=== PATIENT | male | born 1995 | race Caucasian/White ===

== ENCOUNTER 2022-01-03 12:57 | Outpatient (REF) | payer OTHER, SELFPAY ==
--- NOTE | ~2022-01-03 | XR_ITS ---
EXAMINATION: XR SHOULDER, LEFT CLINICAL INFORMATION: Pain COMPARISON: None TECHNIQUE: AP external rotation, Grashey, scapular Y, and axillary views of the left shoulder. FINDINGS: The bones and soft tissues are normal. No fracture. Glenohumeral and acromioclavicular alignment is anatomic with normal joint space. No abnormal soft tissue calcifications. XR/XR shoulder LT min 2V IMPRESSION: Normal left shoulder.
[2022-01-03 13:41] LABS: MANUAL DIFF FLAG NO
[2022-01-03 13:49] LABS: Basophils Absolute Auto 0.1 X10*3/uL (0.0-0.2); Eosinophils Absolute Auto 0.1 X10*3/uL (0.0-0.4); Eosinophils Percent Auto 1.1 % (0-4); Hematocrit 45.5 % (42.0-52.0); Hemoglobin 15.4 g/dl (14.0-18.0); Imm Gran Abs Auto 0.02 X10*3/uL (0.00-0.03); Imm Gran Pct Auto 0.3 % (0.0-0.4); Lymphocytes Absolute Auto 1.6 X10*3/uL (1.2-4.9); Lymphocytes Percent Auto 25.8 % (20-40); Mean Corpuscular HGB Conc 33.8 g/dl (31.0-36.0); Mean Corpuscular Hemoglobin 29.6 pg (27.0-33.0); Mean Corpuscular Volume 87.5 fL (80.0-98.0); Mean Platelet Volume 10.5 fL (9.4-12.4); Monocytes Absolute Auto 0.5 X10*3/uL (0.1-1.2); Monocytes Percent Auto 7.1 % (2-11); Neutrophils Absolute Auto 4.1 x10*3/uL (2.0-8.3); Neutrophils Percent Auto 64.7 % (45-73); Platelet Count 238 X10*3/uL (160-400); Red Cell Distribution Width 12.9 % (11.0-16.0); White Blood Count 6.3 X10*3/uL (4.8-10.8)
[2022-01-03 14:07] LABS: Alanine Aminotransferase 44 U/L (0-40); Alkaline Phosphatase 97 U/L (39-117); Anion Gap 13 (12-20); Aspartate Amino Transferase 31 U/L (5-37); Bilirubin Total 0.8 mg/dL (0.0-1.0); Blood Urea Nitrogen 12 mg/dL (9-16); Calcium 10.1 mg/dL (8.4-10.2); Carbon Dioxide 29 mmol/L (22-29); Chloride 102 mmol/L (96-108); Cholesterol 213 mg/dL; Estimated Glomerular Filt Rate > 60; Glucose Fasting 91 mg/dL (60-99); HDL Cholesterol 56 mg/dL; LDL Cholesterol Calculated 136 mg/dl; Potassium 4.3 mmol/L (3.3-5.1); Sodium 140 mmol/L (135-145); Total Protein 8.3 g/dL (6.5-8.0); Triglycerides 105 mg/dL
[2022-01-03 14:29] LABS: TSH reflex Free T4 1.81 uIU/mL (0.32-4.0)
[2022-01-03 14:38] LABS: Syphilis Screen Nonreactive (Nonreactive)
[2022-01-03 14:44] LABS: Erythrocyte Sedimentation Rate 3 MM/HR (0-15)
[2022-01-04 08:27] LABS: HBS Num1 264.08 mIU/mL (0-7.99); HBc Num1 0.09 S/CO (0.00-0.79); HBsAGNum1 0.27 S/CO (0.00-0.99); HIV AB/AG Nonreactive (Nonreactive); Hepatitis B Core Antibody Nonreactive (Nonreactive); Hepatitis B Surface Antigen Negative (Negative); ~HepC Num1 0.11 S/CO (0.00-0.79); ~Hepatitis B Surface Antibody REACTIVE (Nonreactive); ~Hepatitis C Antibody Nonreactive (Nonreactive)
[2022-01-04 14:42] LABS: CRP High Sensitivity 0.6 mg/L
== END 2022-01-03 12:58 | disposition home or self-care (01) ==
LOC: HO.HMGCX 12:57
PROVIDERS: Visit Provider Family Medicine
DX: Z00.00 Encounter for general adult medical examination without abnormal findings (principal); Z11.3 Encounter for screening for infections with a predominantly sexual mode of transmission; Z11.59 Encounter for screening for other viral diseases; Z13.220 Encounter for screening for lipoid disorders; Z13.29 Encounter for screening for other suspected endocrine disorder; M25.512 Pain in left shoulder
CPT/HCPCS: 36415; 73030; 80053; 80061; 84443; 85025; 85652; 86141; 86704; 86706; 86780; 86803; 87340; 87389

== ENCOUNTER 2022-03-29 07:00 | Outpatient (RCR) | payer OTHER, SELFPAY ==
--- NOTE | 2022-03-15 08:22 | MHC.PT.OD ---
[facility] [place] [facility] [place] [facility] [place] [facility] [address] Josy Vann [address] [phone] F: [phone] F: [phone] F: [phone] F: [phone] Physical Therapy Daily Note Diagnosis: Pain in left shoulder- date of referral 02/16/[address] Cabrera Dove Date of Surgery: Date of Evaluation: 02/24/22 Date of Treatment: 03/15/22 Treatments to Date: 6 Cancellations to Date: No Shows to Date: Authorized Visits: Insurance End Date: Precautions/ Contraindications: Subjective: The pain seems to be higher in my neck and shoulder than before but the numbness is constant. 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 Pain Score and Location: 2 L SHOULDER Objective Flowsheet: Tests & Measures further screening for thoracic outlet next visit Exercises Started on seated [place] as a trial for attempted warm-up (increased sx so this was D/C after approx 4 minutes ) Trialed adding lumbar support roll. pec minor stretch over foam roller x 5 minutes, encouragement for daily stretching this way, review of corner stretch, Review of sub-max isometrics with encouragement to completed at home several times weekly with review of technique, flex/ext/ir/er/abd encouragement for SUBMAX painfree hold 3-5 seconds working up to 3 sets of 10 as able (currently expressing able to complete approx 2 sets 10R before fatigues), standing wall push ups with a plus x 6 reps then expressed irritation so stopped (trial of quadriped irritated sx in neck so position was D/C), rows/ext to neutral with RTB x 2 sets 10R, reviewed previously issued scalene, levator and upper trap stretches x 20 sec hold x 4R to target L side. Encouraged to visit stretching for R side of neck as well. Negative vertebral artery testing Trial of gentle manual C-tx level C6/C7 in effort to alleviate pain in neck and lateral shoulder. Pain in neck start of treatment 2/10 VAS score Pt received this treatment for 10 minutes, relief in pain reported however numbness persisted following completion. Held taping due to history of skin becoming itchy after last session HEP reviewed extensively with patient, importance of stretching daily, avoidance of tasks which increase radiating pain Modalities see above Assessment: Pt has attended 6 sessions of PT to date with start of care 02/24/22, demonstrating slow improvement in pain reduction of the left arm. He expresses ongoing difficulty with sleep, constant numbness along L UE, no specific dermatome, states its my whole arm. Pt has been initiated in a scapular and cervical stabilization program, cervical and pec stretches, expressing what he describes as 15% improvement. Pt is due to deploy in April and expresses concern for ongoing sx. He has been encouraged to stretch daily. Today we revisited trial of manual traction with some positive reduction in neck pain sx. Earlier in start of care trial of manual/mechanical traction irritated his sx. He has been advised to assess response, if positive we will continue with traction. Pt exhibits improving awareness of posture since start of care. Therapist is recommending a follow up with PCP due to persistent ongoing sx, question of benefit in trialing steroid taper to ease radiating sx. It is difficult to discern if he is experiencing centralization of sx as he reports significant variability in his sx. Pt L shoulder is hypermobile and will benefit from ongoing stabilization. Pt to continue to be seen at a frequency of 2x/week until further notice. Thank you for your referral. PT Plan: 2x/week x 4-6 weeks, manual>mechanical C-tx, postural/scapular strengthening> HEP. Progress to [facility] as able UE Lower trap, middle trap scap strength Short Term Goals: 1. AAROM L shoulder abduction to 140 with no sx radiating down L shoulder. (IR: sx 85 degrees worsening radiation with elevation). 2. Centralize L periscap sx to height of neck. (IR: sx radiating medial border>inferior border scap constant in nature). 3. Shift sx in L UE from constant numbness to intermittent. (IR: constant sx in L UE). 4. Resume weight-bearing of the L UE for ADLS/IADLS without flare of sx. (IR: avoiding R SL due to disturbance L UE). 5. Resume sleeping on the R UE MOD I with sx< 2/10. (IR: avoiding due to sleep disturbance). Intermediate Goals: 1. Functional AROM of the L UE. 2. Strength L ER 5/5. 3. Strength L abd 5.5. 4. Resume push-up from floor MOD I sx <2/10 L shoulder. 5. Centralize L periscap and L UE sx to absent 6. I HEP. Electronically signed by: Gaby Dos Santos, PT, DPT
== END 2022-04-26 09:26 | disposition home or self-care (01) ==
LOC: HO.PTWFD 07:00
PROVIDERS: PCP Family Medicine; Visit Provider Family Medicine
DX: M25.512 Pain in left shoulder (principal)
CPT/HCPCS: 97012; 97110; 97140; 97161; 97535

== ENCOUNTER 2023-06-08 15:42 | Outpatient (AMB) | payer OTHER, SELFPAY ==
[2023-06-08 15:44] VITALS: BP 116/70; PULSE 66; O2SAT 99; BMI 27.2
--- NOTE | 2023-06-08 15:44 | MHC.PC.OV ---
Vital Signs 06/08/23 15:44 Height 5 ft 9 in Weight 184 lb 8 oz BMI 27.2 BP 116/70 Blood Pressure Location Rt brachial Position Sitting Pulse 66 Pulse Source Pulse Oximeter Pulse Oximetry (%) 99 Oxygen Delivery Method Room Air Intake Visit Reasons: Ongoing Right Shoulder Pain Intake Note: Patient is here with left shoulder pain. Allergies No Known Allergies Allergy (Verified 06/08/23 15:47) Tobacco use date assessed: 06/08/23 Dental Screening Dental Screen Date: 06/08/23 Did you have a dental visit in the last 12 months?: No Did you have a dental problem in the last 6 months where you did not have access to dental care?: No Was dental information given to patient?: Patient has dentist HPI Ongoing Right Shoulder Pain HPI Details 28 y/o male presents today with complaints of ongoing L shoulder pain. Pt reports L shoulder pain moves up to his neck with popping/cracking sounds. He has trialed physical therapy before. PFSH Family History Maternal Grandmother Breast cancer Father Joint pain Social History Housing: House Patient Tobacco Use Status: Never used Tobacco e-Cigarette/Vaping Use: Never Used Second Hand Smoke Exposure: No service: Yes Current occupational status: employed Current occupational exposures/hazards: No Cognitive needs: No Hearing needs: No Vision needs: No Questionnaire AR-7 AMB Questionnaire AR-7 Date AR - 7 assessed: 02/15/22 Source: Developed by Drs. Torrey Lopez, Ankita Corona, Ronny Goldman and colleagues, with an educational neetu from [employer]. Review of Systems Const Denies chills, Denies fatigue, Denies fever(s), Denies headache(s) and Denies weakness ENT Denies dizziness and Denies headache(s) Card Denies dyspnea Resp Denies cough, Denies dyspnea, Denies wheezing and Denies other (shortness of breath) Musc Details: Shoulder pain Denies numbness and Denies tingling Neuro Denies dizziness, Denies headache(s), Denies numbness, Denies tingling and Denies weakness Psych Denies anxiety and Denies depression Endo Denies fatigue Aller/Immun Denies wheezing Physical exam (Primary Care) Vital Signs: Last Vital Signs Pulse 66 06/08/23 15:44 BP 116/70 06/08/23 15:44 Pulse Ox 99 06/08/23 15:44 Oxygen Delivery Method Room Air 06/08/23 15:44 BMI result Body Mass Index 27.2 Tobacco/Smoking Status: Tobacco use Status Tobacco use date assessed 06/08/23 06/08/23 15:52 Patient Tobacco Use Status Never used Tobacco 06/08/23 15:52 e-Cigarette/Vaping Use Never Used 06/08/23 15:46 Const General: well developed; No acute distress Nutritional Appearance: well nourished Orientation/consciousness: patient oriented x3 HENMT Head: Yes normocephalic and Yes atraumatic Eyes General: appearance normal, both eyes and all related structures Pupils: Equal, round and reactive pupils present EOM: EOMs intact bilaterally Resp Effort & Inspection: normal respiratory effort Neuro General: patient oriented x3 and gait normal Cranial nerves: Yes Equal, round and reactive pupils present Psych Affect: normal affect Assessment and Plan Assessment & Plan (1) Left shoulder pain: Code(s): M25.512 - Pain in left shoulder Plan: Return?of?left?shoulder?pain?with?popping?and?cracking?sounds. Pain?at?top?of?left?shoulder?with?abduction?to?90?degrees?and?also?with?internal?rotation Offered?physical?therapy?but?patient?says?he?is?exercising?already?and?declines?this Will?check?x-ray?and?refer?him?to?Ortho?as?per?his?request Orders: Orders XR shoulder LT min 2V Today M25.512 - Pain in left shoulder Comprehensive [place]. Panel Fast Today M25.512 - Pain in left shoulder, Z00.00 - Encounter for general adult medical examination without abnormal findings Lipid Panel Today M25.512 - Pain in left shoulder, Z00.00 - Encounter for general adult medical examination without abnormal findings Microalbumin, Random (w Creat) Today I10 - Essential (primary) hypertension, M25.512 - Pain in left shoulder TSH reflex Free T4 Today M25.512 - Pain in left shoulder, Z00.00 - Encounter for general adult medical examination without abnormal findings UA and rflx microscopic Today M25.512 - Pain in left shoulder, Z00.00 - Encounter for general adult medical examination without abnormal findings Referrals Orthopedics Referral M25.512 - Pain in left shoulder Coding Level of Care Code Est Pt Level 3 (31335) Diagnoses Left shoulder pain M25.512
== END 2023-06-08 16:05 | disposition home or self-care (01) ==
PROVIDERS: PCP Family Medicine; Visit Provider Family Medicine
DX: M25.512 Pain in left shoulder (principal)
CPT/HCPCS: 99213

== ENCOUNTER 2023-07-07 11:01 | Outpatient (AMB) | payer OTHER, SELFPAY ==
--- NOTE | 2023-07-07 11:07 | A.OFFVIS_ITS ---
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 Patient reports that he has had ongoing pain for years now, pain radiates to the neck. Cannot recall any injury. Hx of physical therapy which did help mildly. He also did 6 months of lifting/home exercise program. His symptoms are described as numbness and aching. 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 He has tried PT and it has not helped. He denies injury. He describes pain with activity. He does not have night pain and the pain is not sub deltoid. His pain is less definable and does not localize to any one spot. He describes deep pain that is intermittent. There are times when is is able to work out but inevitably he will do something that causes pain and he has to stop. Nothing helps except inactivity. PFSH Family History Maternal Grandmother Breast cancer Father Joint pain Social History (Reviewed 06/08/23 @ 15:49 by Erin Cooper [facility]) Housing: House Patient Tobacco Use Status: Never used Tobacco e-Cigarette/Vaping Use: Never Used Second Hand Smoke Exposure: No service: Yes Current occupational status: employed Current occupational exposures/hazards: No Cognitive needs: No Hearing needs: No Vision needs: No Physical Exam Vital Signs: BMI result Body Mass Index 27.2 Extrem Other: Full ROM neg lift off neg EC neg H/N + Castrejon's no acj TTP Results Reviewed Results Reviewed: I personally reviewed relevant radiographs. nl shoulder radiographs Assessment & Plan Assessment & Plan (1) Internal derangement of left shoulder: Code(s): M24.812 - Other specific joint derangements of left shoulder, not elsewhere classified Plan: THis is a 28 yo M with signs and symptoms of a SLAP tear. He has not improved iwth PT and I recommend an MRI of the left shoulder with intra-articular contrast and ABER sequence. Orders: Orders FL arthrogram shoulder LT Today M24.812 - Other specific joint derangements of left shoulder, not elsewhere classified MR shoulder LT wo/w con Today M24.812 - Other specific joint derangements of left shoulder, not elsewhere classified Coding Level of Care Code New Pt Level 4 (77922) Diagnoses Internal derangement of left shoulder M24.812
[2023-07-07 11:08] VITALS: BMI 27.2
== END 2023-07-07 12:23 | disposition home or self-care (01) ==
LOC: HO.HOS 11:01
PROVIDERS: PCP Family Medicine; Visit Provider Orthopaedic Surgery
DX: M24.812 Other specific joint derangements of left shoulder, not elsewhere classified (principal)
CPT/HCPCS: 99204

== ENCOUNTER → 2023-07-07 11:01 | Outpatient (BNVA) | payer OTHER, SELFPAY | PROVIDERS: PCP Family Medicine; Visit Provider Orthopaedic Surgery | DX: M24.812 Other specific joint derangements of left shoulder, not elsewhere classified (principal) | CPT/HCPCS: 99202 ==

== ENCOUNTER 2023-08-22 13:03 | Outpatient (REF) | payer OTHER, SELFPAY ==
--- NOTE | ~2023-08-22 | FL_ITS ---
Left shoulder arthrogram Indications: Left shoulder pain. Intra-articular gadolinium injection is needed prior to MRI. Procedure: Risks and benefits and possible complications were discussed with the patient and the consent form was signed. The patient was placed supine on the fluoroscopy table. The left shoulder was prepped and draped in normal sterile fashion. 1% buffered lidocaine was used for anesthesia. A 22-gauge spinal needle was used to access the shoulder joint. Intra-articular position of the needle within the shoulder joint was verified using 3 cc of Omnipaque 300. A total of 10 mL of gadolinium/saline (1:200) contrast mixture was then injected into the shoulder joint. The needle was then removed and a Band-Aid was applied to the injection site. The patient tolerated the procedure well and was sent for to MRI. There were no immediate complications. FL/FL arthrogram shoulder LT Impression: Fluoroscopic left shoulder arthrogram The procedure was performed by jada Moran PA-C, and directly supervised by Dr. Hernandez
--- NOTE | ~2023-08-22 | MR_ITS ---
EXAMINATION: MR SHOULDER WITH CONTRAST, LEFT CLINICAL INFORMATION: Left shoulder pain. COMPARISON: Pre-MRI arthrogram of the left shoulder. X-ray left shoulder December 2021 TECHNIQUE: MRI of the shoulder was performed following the intra-articular administration of a dilute gadolinium-containing solution (arthrogram) on a high-field scanner. Aber view also obtained. FINDINGS: ROTATOR CUFF: Intact. No muscle atrophy or fatty infiltration. BICEPS: Normal. CORACOACROMIAL ARCH: The undersurface of the acromion is curved with no subacromial spur. The acromioclavicular joint is normal. LABRUM/CAPSULE: Normal. GLENOHUMERAL JOINT/MARROW: Normal. MR/MR shoulder LT w con IMPRESSION: Normal MRI of the left shoulder with intra-articular contrast
[2023-08-22] MEDS: gadobutroL 2 ML VIAL IVPUSH (15:15)
== END 2023-08-22 13:04 | disposition home or self-care (01) ==
LOC: HO.XRAY 13:03
PROVIDERS: PCP Family Medicine; Visit Provider Orthopaedic Surgery
DX: M24.812 Other specific joint derangements of left shoulder, not elsewhere classified (principal)
CPT/HCPCS: 23350; 73040; 73222; A9585

== ENCOUNTER → 2023-08-22 13:06 | Outpatient (BNV) | payer OTHER, SELFPAY | PROVIDERS: PCP Family Medicine; Visit Provider Radiology Diagnostic Radiology | DX: M25.512 Pain in left shoulder (principal) | CPT/HCPCS: 23350; 73040 ==

== ENCOUNTER 2023-09-15 11:35 | Outpatient (AMB) | payer OTHER, SELFPAY ==
--- NOTE | 2023-09-15 11:40 | A.OFFVIS_ITS ---
Intake Intake Visit Reasons: OV - Left Shoulder MRI Arthrogram - 08/22/23 Intake Note: Logan is a 19 year old right hand dominant male who presents today for a follow up of his right shoulder. MRI w intra-articular contrast and ABER sequence 08/22/23 Allergies No Known Allergies Allergy (Verified 07/07/23 11:16) HPI OV - Left Shoulder MRI Arthrogram - 08/22/23 HPI Details Logan is a 28 year old man who presents for an MRI review of his left shoulder pain. He is S/P left shoulder arthrogram on 08/22/23. He is active . He complains of pain primarily with activity, and denies worsening pain at night. He has found no relief from PT in the past, and says only rest & inactivity improves his pain during a flare-up. His left arm does occasionally feel heavy and weak. He denies numbness and tingling PFSH Family History Maternal Grandmother Breast cancer Father Joint pain Social History Housing: House Patient Tobacco Use Status: Never used Tobacco e-Cigarette/Vaping Use: Never Used Second Hand Smoke Exposure: No service: Yes Current occupational status: employed Current occupational exposures/hazards: No Cognitive needs: No Hearing needs: No Vision needs: No Review of Systems Const All systems reviewed & are unremarkable except as noted in HPI and below Physical Exam Const General: no acute distress, alert and awake Orientation/consciousness: patient oriented x3 HEENT Head: Yes normocephalic and Yes atraumatic Eyes EOM: EOMs intact bilaterally Resp Effort & Inspection: normal respiratory effort and able to speak in complete sentences Cardio Jugular venous distension: no JVD Skin General skin exam: turgor normal Rashes: no rashes Neuro General: patient oriented x3 Extrem Other: + O'ann marie's Neg EC Full ROM 5/5 LUE T/D/T/we/wf/io 4/5 left biceps neg spurlings neg Abreu Psych Appearance: grossly normal Affect: normal affect Attitude: cooperative Results Reviewed Results Reviewed: I personally reviewed the MR images. Left shoudler MR arthrogram nl No demetra extravasation Assessment & Plan Assessment & Plan (1) Left arm weakness: Code(s): R29.898 - Other symptoms and signs involving the musculoskeletal system Plan: Isolated left biceps weakness with nl MRI shoulder. I am concerned for his cervical spine and an MR has been ordered. He has not improved with conservative measures. Plan Prepared for Candido Weber MD by Jarred Regan, medical staff services manager, on 09/15/23 at 11:48 AM, EST. Orders: Orders MR cervical spine wo con Today R29.898 - Other symptoms and signs involving the musculoskeletal system Coding Level of Care Code Est Pt Level 4 (28311) Diagnoses Left arm weakness R29.898
== END 2023-09-15 12:32 | disposition home or self-care (01) ==
PROVIDERS: PCP Family Medicine; Visit Provider Orthopaedic Surgery
DX: M79.602 Pain in left arm (principal); R29.898 Other symptoms and signs involving the musculoskeletal system
CPT/HCPCS: 99213

== ENCOUNTER → 2023-09-15 11:35 | Outpatient (BNVA) | payer OTHER, SELFPAY | PROVIDERS: PCP Family Medicine; Visit Provider Orthopaedic Surgery | DX: R29.898 Other symptoms and signs involving the musculoskeletal system (principal) | CPT/HCPCS: 99212 ==

== ENCOUNTER → 2023-11-02 15:50 | Outpatient (AMB) | payer OTHER, SELFPAY ==
[2023-11-02 16:03] VITALS: BP 110/64; PULSE 99; O2SAT 97; BMI 26.9
--- NOTE | 2023-11-02 16:03 | A.OFFPC_ITS ---
Vital Signs 11/02/23 16:03 Height 5 ft 9 in Weight 182 lb 8 oz BMI 26.9 BP 110/64 Blood Pressure Location Lt radial Position Sitting Pulse 99 Pulse Source Pulse Oximeter Pulse Oximetry (%) 97 Oxygen Delivery Method Room Air Intake Visit Reasons: CPE with f/u labs and health maintenance Intake Note: Patient is here for a physical today. Allergies No Known Allergies Allergy (Verified 11/02/23 16:05) Medication List - Last Reconciled 11/02/23 by Cabrera Dove MD No Known Home Meds Tobacco use date assessed: 11/02/23 Dental Screening Dental Screen Date: 06/08/23 Did you have a dental visit in the last 12 months?: Yes Did you have a dental problem in the last 6 months where you did not have access to dental care?: No Was dental information given to patient?: Patient has dentist HPI CPE with f/u labs and health maintenance HPI Details 28 y/o male presents for a CPE with f/u labs. No recent labs to review. He eats a healthy diet. He notes he does not exercise as much as he should. PFSH Family History Maternal Grandmother Breast cancer Father Joint pain Social History Housing: House Patient Tobacco Use Status: Never used Tobacco e-Cigarette/Vaping Use: Never Used Second Hand Smoke Exposure: No service: Yes Current occupational status: employed Current occupational exposures/hazards: No Cognitive needs: No Hearing needs: No Vision needs: No Questionnaire PHQ-9 Over the last 2 weeks, how often have you been bothered by any of the following problems? 1. Little interest or pleasure in doing things: not at all 2. Feeling down, depressed, or hopeless: not at all 3. Trouble falling or staying asleep, or sleeping too much: not at all 4. Feeling tired or having little energy: not at all 5. Poor appetite or overeating: not at all 6. Feeling bad about yourself - or that you are a failure or have let yourself or your family down: not at all 7. Trouble concentrating on things, such as reading the newspaper or watching television: not at all 8. Moving or speaking so slowly that other people could have noticed. Or the opposite - being so fidgety or restless that you have been moving around a lot more than usual: not at all 9. Thoughts that you would be better off or of hurting yourself in some way: not at all Total score: 0 Depression Screening Interpretation: Negative Depression Screening Done: Yes 46575 - PHQ-9 Billing: Yes Source: Developed by Drs. Torrey Lopez, Ankita Corona, Ronny Goldman and colleagues, with an educational neetu from [employer]. Thrive Questionnaire Date Thrive assessed: 11/02/23 I am a: Patient What is your living situation today?: I have a steady place to live Within the past 12 months, did the food you bought not last and you didn't have the money to get more?: Never true Within the past 12 months, did you worry whether your food would run out before you got money to buy more?: Never true Do you have trouble paying for medicines?: No Do you have trouble getting transportation to medical appointments?: No Do you have trouble paying your heating and electricity bill?: No Do you have trouble taking care of your child, family member or friend?: No Do you have trouble with day-to-day activities such as bathing, preparing meals, shopping, managing finances, etc.?: No Are you currently unemployed and looking for a job?: No Are you interested in more education?: No THRIVE Score: 0 AUDIT C Alcohol Use Questionnaire (AUDIT-C) 1. How often do you have a drink containing alcohol?: Monthly or less 2. How many drinks containing alcohol do you have on a typical day when you are drinking?: 1 or 2 3. How often do you have six or more drinks on one occasion?: Never Total Score: 1 AR-7 AMB Questionnaire AR-7 Date AR - 7 assessed: 02/15/22 Source: Developed by Drs. Torrey Lopez, Ankita Corona, Ronny Goldman and colleagues, with an educational neetu from [employer]. Review of Systems Const Denies chills, Denies fatigue, Denies fever(s), Denies headache(s) and Denies weakness Eyes Denies change in vision ENT Denies dizziness, Denies headache(s), Denies hearing loss, Denies nasal congestion, Denies sinus pain, Denies sinus pressure and Denies sore throat Card Denies chest pain, Denies lightheadedness, Denies dyspnea and Denies other (palpitations) Resp Denies cough, Denies dyspnea and Denies wheezing GI Denies abdominal pain, Denies melena, Denies hematochezia, Denies change in bowel habits, Denies dyspepsia and Denies nausea Denies hematuria and Denies dysuria Musc Denies abnormal gait, Denies myalgias, Denies arthralgias, Denies numbness and Denies tingling Skin/Breast Denies rash, Denies unusual bruising and Denies wounds Neuro Denies abnormal gait, Denies dizziness, Denies headache(s), Denies memory loss, Denies numbness, Denies Sensory deficit (Neuro), Denies tingling and Denies weakness Psych Denies anxiety, Denies depression and Denies memory loss Endo Denies cold intolerance, Denies fatigue, Denies heat intolerance, Denies polydipsia and Denies polyuria Jayson/Lymph Denies easy bleeding and Denies easy bruising Aller/Immun Denies wheezing Physical exam (Primary Care) Vital Signs: Last Vital Signs Pulse 99 11/02/23 16:03 BP 110/64 11/02/23 16:03 Pulse Ox 97 11/02/23 16:03 Oxygen Delivery Method Room Air 11/02/23 16:03 BMI result Body Mass Index 26.9 Tobacco/Smoking Status: Tobacco use Status Tobacco use date assessed 11/02/23 11/02/23 16:11 Patient Tobacco Use Status Never used Tobacco 11/02/23 16:04 e-Cigarette/Vaping Use Never Used 11/02/23 16:04 PHQ-9: PHQ-9 Score PHQ-9: Total score 0 11/02/23 16:11 Depression Screening Interpretation: Negative Thrive Assessment: Date of Thrive Assessment Date Thrive assessed 11/02/23 11/02/23 16:11 Const General: no acute distress, well developed, alert and awake Nutritional Appearance: well nourished Orientation/consciousness: patient oriented x3 HENMT Head: Yes normocephalic and Yes atraumatic Ears: hearing grossly normal bilaterally and TM's normal bilaterally General nose exam: Normal external nose present and Normal nares present Mouth: Normal oral and palatal mucosa present and moist mucous membranes Teeth and gingiva: dentition normal Throat: Yes posterior oropharynx normal Eyes General: appearance normal, both eyes and all related structures Pupils: Equal, round and reactive pupils present and Pupil accommodation reflex normal EOM: EOMs intact bilaterally Neck Neck: Yes normal visual inspection, Yes no lymphadenopathy and Yes trachea midline Thyroid: Thyroid normal Carotids: no bruits Lymphatic: no lymphadenopathy noted Chest Chest palpation & inspection: normal inspection of the chest Resp Effort & Inspection: normal respiratory effort Auscultation: clear to auscultation bilaterally Cardio Rate: regular rate Rhythm: regular rhythm Heart sounds: S1 normal heart sound present, S2 normal heart sound present, no gallops, no murmurs and no rubs Bruits: no abdominal aortic bruits and no carotid bruits GI Palpation (GI): No Abdominal aortic bruit present, Soft to palpation, nontender, No hepatosplenomegaly present and No Rebound tenderness present Auscultation: normal bowel sounds General: Yes no CVA tenderness Back/Spine/Pelvis Back: no CVA tenderness Cervical Spine: cervical ROM normal and No Cervical spine tenderness Thoracic/Lumbar Spine: thoraco-lumbar ROM normal, No pain with thoraco-lumbar ROM, No thoracic spinal tenderness and No lumbar spinal tenderness Skin Lesions: no lesions Rashes: no rashes Trauma: no lacerations or abrasions Wounds: no wounds Nails: normal Neuro General: patient oriented x3 Cranial nerves: Yes Equal, round and reactive pupils present Cognition (Neuro): normal cognition Gait exam (Neuro): Normal gait present Motor exam (neuro): 5/5 motor strength present throughout Sensory Exam: No Sensory deficit (Neuro) Deep tendon reflexes (DTR's): Right patellar reflex intensity grade: 2+ and Left patellar reflex intensity grade: 2+ Extrem General: Yes normal to inspection and No edema Psych Appearance: grossly normal Affect: normal affect Attitude: cooperative Thought process: Normal thought process present Assessment and Plan Assessment & Plan (1) Adult general medical exam: Code(s): Z00.00 - Encounter for general adult medical examination without abnormal findings Plan: 28-year-old?male?presents?for?complete?physical?exam Exam?within?normal?limits Encouraged?healthy?diet?with?active?lifestyle?and?plenty?of?exercise Plan Has?not?gotten?his?labs?drawn?yet?a nd?encouraged?him?to?do?so.??He?can?arrange?a?follow- up?by?telemedicine?afterwards. Coding Level of Care Code Est Pt Level 3 (22065) Est Pt Prev Care 18-39y(91124) Diagnoses Adult general medical exam Z00.00
== END ==
PROVIDERS: PCP Family Medicine; Visit Provider Family Medicine
DX: Z00.00 Encounter for general adult medical examination without abnormal findings (principal)
CPT/HCPCS: 99395

== ENCOUNTER 2023-11-24 15:54 | Outpatient (REF) | payer OTHER, SELFPAY ==
--- NOTE | ~2023-11-24 | MR_ITS ---
EXAMINATION: MR CERVICAL SPINE WITHOUT CONTRAST CLINICAL INFORMATION: Symptoms and signs involving the musculoskeletal system COMPARISON: None available. TECHNIQUE: MRI of the cervical spine was obtained using routine sequences without contrast. FINDINGS: The visualized cervical vertebrae are intact. No focal bone lesion with abnormal signal can be seen. Evaluation of the intervertebral discs show: C2/C3: Intervertebral disc height is normal, with normal T2 signal. No focal disc herniation is seen. Bilateral C2-C3 neural foramina are patent. Bilateral apophyseal joints are intact with normal alignment. C3/C4: Intervertebral disc height is normal, with normal T2 signal. No focal disc herniation is seen. Bilateral C3-C4 neural foramina are patent. Bilateral apophyseal joints are intact with normal alignment. C4/C5: There is mild C4-C5 kyphosis. Intervertebral disc height is normal, with normal T2 signal. Mild asymmetric right posterior disc protrusion partially effacing the right lateral recess is seen. There is mild asymmetric right C4-C5 neural foraminal stenosis. There is moderate central cervical spinal stenosis with AP diameter of the spinal canal reduced to 8.3 mm. Bilateral apophyseal joints are intact with normal alignment. C5/C6: Intervertebral disc height is normal, with normal T2 signal. Mild posterior disc protrusion is seen. Bilateral C5-C6 neural foramina are patent. Bilateral apophyseal joints are intact with normal alignment. C6/C7: Intervertebral disc height is normal, with normal T2 signal. No focal disc herniation is seen. There is mild asymmetric left C6-C7 neural foraminal stenosis. Bilateral apophyseal joints are intact with normal alignment. C7/T1: Intervertebral disc height is normal, with normal T2 signal. No focal disc herniation is seen. Bilateral C7-T1 neural foramina are patent. Bilateral apophyseal joints are intact with normal alignment. 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 MR/MR cervical spine wo con IMPRESSION: 1. Mild C4-C5 kyphosis. 2. Mild asymmetric right C4-C5 posterior disc protrusion partially effacing the right lateral recess, mild right neural foraminal stenosis and Moderate C4-C5 central cervical spinal stenosis. 3. Mild asymmetric left C6-C7 neural foraminal stenosis. 4. Mild C5-C6 posterior disc protrusion is present. 5. 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
== END 2023-11-24 15:55 | disposition home or self-care (01) ==
LOC: HO.MRI 15:54
PROVIDERS: PCP Family Medicine; Visit Provider Orthopaedic Surgery
DX: R29.898 Other symptoms and signs involving the musculoskeletal system (principal)
CPT/HCPCS: 72141

== ENCOUNTER 2024-12-09 11:08 | Outpatient (AMB) | payer OTHER, SELFPAY ==
--- NOTE | 2024-12-09 11:10 | A.OFFPC_ITS ---
Vital Signs 12/09/24 11:15 Height 5 ft 9 in Weight 173 lb 8 oz BMI 25.6 BP 110/84 Blood Pressure Location Rt brachial Position Sitting Respiration 12 Pulse 84 Pulse Source Pulse Oximeter Temp 98.5 F Temp Source Oral Pulse Oximetry (%) 98 Oxygen Delivery Method Room Air Intake Visit Reasons: blocked ear pain Intake Note: Bilateral ear pain, hearing loss. Symptoms started last Monday. Went to [facility] in [place]. Provider Enrollment Specialist Required: No Allergies No Known Allergies Allergy (Verified 12/09/24 11:14) Tobacco use date assessed: 12/09/24 Dental Screening Dental Screen Date: 12/09/24 Did you have a dental visit in the last 12 months?: Yes Did you have a dental problem in the last 6 months where you did not have access to dental care?: No Was dental information given to patient?: Patient has dentist HPI HPI Comments History of Present Illness Details The patient is a 29 year old male with no pertinent past medical history presenting for bilateral ear fullness, sinus congestion for 2 weeks He was seen in urgent care last week and told to continue mucinex DM. He has had no relief since Continues to have bilateral ear fullness, pain, sinus pressure Denies fevers No shortness of breath. +pnd ROS see HPI PHYSICAL EXAM: GENERAL: Alert and oriented x 3. NAD EYES: EOMI. Anicteric. HENT: Moist mucous membranes. Bilateral TM injection, bulging with significant middle ear effusions bilaterally LUNGS: Clear to auscultation bilaterally. CARDIOVASCULAR: Regular rate and rhythm. No murmur. No JVD. ABDOMEN: Soft, non-tender +bs EXTREMITIES: No edema. Non-tender. SKIN: No rashes or lesions. Warm. NEUROLOGIC: No focal neurological deficits. CN II-XII grossly intact PSYCHIATRIC: Cooperative. Appropriate mood and affect [facility] Family History Maternal Grandmother Breast cancer Father Joint pain Social History Housing: House Alcohol intake: current Patient Tobacco Use Status: Never used Tobacco e-Cigarette/Vaping Use: Never Used Second Hand Smoke Exposure: No Use of substances other than those prescribed or required for medical reasons: No service: Yes Current occupational status: employed Current occupation: [employer]. Current occupational exposures/hazards: No Cognitive needs: No Hearing needs: No Vision needs: No Questionnaire PHQ-9 Over the last 2 weeks, how often have you been bothered by any of the following problems? 1. Little interest or pleasure in doing things: not at all 2. Feeling down, depressed, or hopeless: not at all 3. Trouble falling or staying asleep, or sleeping too much: not at all 4. Feeling tired or having little energy: not at all 5. Poor appetite or overeating: not at all 6. Feeling bad about yourself - or that you are a failure or have let yourself or your family down: not at all 7. Trouble concentrating on things, such as reading the newspaper or watching television: not at all 8. Moving or speaking so slowly that other people could have noticed. Or the opposite - being so fidgety or restless that you have been moving around a lot more than usual: not at all 9. Thoughts that you would be better off or of hurting yourself in some way: not at all Total score: 0 Depression Screening Interpretation: Negative Depression Screening Done: Yes 18149 - PHQ-9 Billing: Yes Source: Developed by Drs. Torrey Lopez, Ankita Corona, Ronny Goldman and colleagues, with an educational neetu from [employer]. Thrive Questionnaire Date Thrive assessed: 12/09/24 I am a: Patient What is your living situation today?: I have a steady place to live Within the past 12 months, did the food you bought not last and you didn't have the money to get more?: Never true Within the past 12 months, did you worry whether your food would run out before you got money to buy more?: Never true Do you have trouble paying for medicines?: No Do you have trouble getting transportation to medical appointments?: No Do you have trouble paying your heating and electricity bill?: No Do you have trouble taking care of your child, family member or friend?: No Do you have trouble with day-to-day activities such as bathing, preparing meals, shopping, managing finances, etc.?: No Are you currently unemployed and looking for a job?: No Are you interested in more education?: No Please select the resources that you would like help with: None Currently or been in a relationship where the following occur: No concerns reported THRIVE Score: 0 AUDIT C Alcohol Use Questionnaire (AUDIT-C) 1. How often do you have a drink containing alcohol?: Monthly or less 2. How many drinks containing alcohol do you have on a typical day when you are drinking?: 1 or 2 3. How often do you have six or more drinks on one occasion?: Less than monthly Total Score: 2 AR-7 AMB Questionnaire AR-7 Date AR - 7 assessed: 12/09/24 Feeling nervous, anxious, or on edge: 0 = Not at all Not being able to stop or control worryin = Not at all Worrying too much about different things: 0 = Not at all Trouble relaxin = Not at all Being so restless that it is hard to sit still: 0 = Not at all Becoming easily annoyed or irritable: 0 = Not at all Feeling afraid as if something awful might happen: 0 = Not at all Total AR-7 score (0-4 normal; 5-9 mild; 10-14 moderate; 15-21 severe): 0 Source: Developed by Drs. Torrey Lopez, Ankita Corona, Ronny Goldman and colleagues, with an educational neetu from [employer]. AR-7 Assessment Billing AR-7 Assessment Tool: AR-7 Assessment 49662 Physical exam (Primary Care) Vital Signs: Last Vital Signs Temp 98.5 F 12/09/24 11:15 Pulse 84 12/09/24 11:15 Resp 12 12/09/24 11:15 BP 110/84 12/09/24 11:15 Pulse Ox 98 12/09/24 11:15 Oxygen Delivery Method Room Air 12/09/24 11:15 BMI result Body Mass Index 25.6 Tobacco/Smoking Status: Tobacco use Status Tobacco use date assessed 12/09/24 12/09/24 11:18 Patient Tobacco Use Status Never used Tobacco 12/09/24 11:18 e-Cigarette/Vaping Use Never Used 12/09/24 11:18 PHQ-9: PHQ-9 Score PHQ-9: Total score 0 12/09/24 11:18 Depression Screening Interpretation: Negative Thrive Assessment: Date of Thrive Assessment Date Thrive assessed 12/09/24 12/09/24 11:18 Currently or been in a relationship where the following occur: No concerns reported Coding Level of Care Code Est Pt Level 4 (70411) Diagnoses Acute non-recurrent maxillary sinusitis J01.00 Sinusitis location: maxillary Chronicity: acute Recurrence: non-recurrent Additional Codes AR-7 Assessment Billing - AR-7 Assessment Tool: AR-7 Assessment [id number] ([id number]) PHQ-9 - 75767 - PHQ-9 Billing: Yes ([id number]) Assessment & Plan Assessment & Plan (1) Sinusitis: Code(s): J32.9 - Chronic sinusitis, unspecified Category: Medical Qualifiers: Sinusitis location: maxillary Chronicity: acute Recurrence: non- recurrent Qualified Code(s): J01.00 - Acute maxillary sinusitis, unspecified Plan: Augmentin x 10 day Prednisone x 3 days Continue otc medication Return if symptoms persist or worsen Medications: New amoxicillin-pot clavulanate 875-125 mg 1 tab PO Q12H 20 tabs 0RF prednisone 40 mg (2 x 20 mg) PO DAILY 6 tabs 0RF
[2024-12-09 11:15] VITALS: BP 110/84; PULSE 84; RESP 12; TEMP 36.9; O2SAT 98; BMI 25.6
== END 2024-12-09 11:29 | disposition home or self-care (01) ==
LOC: HO.HMCFM 11:08
PROVIDERS: PCP Family Medicine; Visit Provider Internal Medicine
DX: J01.00 Acute maxillary sinusitis, unspecified (principal)

== ENCOUNTER → 2024-12-09 11:08 | Outpatient (BNVA) | payer OTHER, SELFPAY | PROVIDERS: PCP Family Medicine; Visit Provider Internal Medicine | DX: J01.00 Acute maxillary sinusitis, unspecified (principal) | CPT/HCPCS: 96127; 99212 ==

== ENCOUNTER 2025-05-02 10:19 | Outpatient (AMB) | payer OTHER, SELFPAY ==
--- NOTE | 2025-05-02 10:56 | A.OFFPC_ITS ---
Vital Signs 05/02/25 11:01 Height 5 ft 9 in Weight 166 lb BMI 24.5 BP 114/80 Blood Pressure Location Rt brachial Position Sitting Respiration 12 Pulse 79 Pulse Source Pulse Oximeter Temp 97.4 F Temp Source Temporal Artery Scan Pulse Oximetry (%) 98 Oxygen Delivery Method Room Air Intake Visit Reasons: continual shoulder issues/hurt left big toe Intake Note: Logan presents in the office today for continued left shoulder issues and an issue the left his great toe. Patient would like to discuss getting sleep study. Allergies No Known Allergies Allergy (Verified 05/02/25 10:59) Tobacco use date assessed: 05/02/25 Dental Screening Dental Screen Date: 05/02/25 Did you have a dental visit in the last 12 months?: Yes Did you have a dental problem in the last 6 months where you did not have access to dental care?: No Was dental information given to patient?: Patient has dentist HPI continual shoulder issues/hurt left big toe HPI Details 30 y/o male presents today with complain ts of ongoing shoulder pain. Recent MRI L shoulder was unrevealing. Reports L shoulder pain have improved at one point but has returned with some numbness. Also does note some neck pain. Also reports toe pain. Pt reports snoring and witnessed apneic events. Would like a referral to sleep medicine. Also reports hypersomnia. HPI Comments History of Present Illness Details Documentation assistance for Cabrera Dove MD, was provided by Yordan Dan,? [employer] on 05/02/2025 at 11:35 AM EST. I, Dr. Dove, have read, observed, and verified documentation. ? PFSH Family History (Updated 05/02/25 @ 11:00 by Lina English CMA) Maternal Grandmother Breast cancer Father Joint pain Social History (Updated 05/02/25 @ 11:01 by Lina English CMA) Housing: House Alcohol intake: current Patient Tobacco Use Status: Never used Tobacco e-Cigarette/Vaping Use: Never Used Second Hand Smoke Exposure: No service: Yes Current occupational status: employed Current occupation: [employer] Current occupational exposures/hazards: No Cognitive needs: No Hearing needs: No Vision needs: No Questionnaire Thrive Questionnaire Date Thrive assessed: 12/09/24 I am a: Patient What is your living situation today?: I have a steady place to live Within the past 12 months, did the food you bought not last and you didn't have the money to get more?: Never true Within the past 12 months, did you worry whether your food would run out before you got money to buy more?: Never true Do you have trouble paying for medicines?: No Do you have trouble getting transportation to medical appointments?: No Do you have trouble paying your heating and electricity bill?: No Do you have trouble taking care of your child, family member or friend?: No Do you have trouble with day-to-day activities such as bathing, preparing meals, shopping, managing finances, etc.?: No Are you currently unemployed and looking for a job?: No Are you interested in more education?: No Please select the resources that you would like help with: None Currently or been in a relationship where the following occur: No concerns reported THRIVE Score: 0 AR-7 AMB Questionnaire AR-7 Date AR - 7 assessed: 12/09/24 Source: Developed by Drs. Torrey Lopez, Ankita Corona, Ronny Goldman and colleagues, with an educational neetu from [employer]. Review of Systems Const Denies chills, Denies fatigue, Denies fever(s), Denies headache(s) and Denies weakness ENT Denies dizziness, Denies headache(s) and Reports neck pain Card Denies dyspnea Resp Denies cough, Denies dyspnea, Denies wheezing and Denies other (shortness of breath) Musc Reports neck pain, Denies numbness and Denies tingling Neuro Denies dizziness, Denies headache(s), Denies numbness, Denies tingling and Denies weakness Psych Denies anxiety and Denies depression Endo Denies fatigue Aller/Immun Denies wheezing Physical exam (Primary Care) Vital Signs: Last Vital Signs Temp 97.4 F 05/02/25 11:01 Pulse 79 05/02/25 11:01 Resp 12 05/02/25 11:01 BP 114/80 05/02/25 11:01 Pulse Ox 98 05/02/25 11:01 Oxygen Delivery Method Room Air 05/02/25 11:01 BMI result Body Mass Index 24.5 Tobacco/Smoking Status: Tobacco use Status Tobacco use date assessed 05/02/25 05/02/25 11:03 Patient Tobacco Use Status Never used Tobacco 05/02/25 11:01 e-Cigarette/Vaping Use Never Used 05/02/25 11:01 Thrive Assessment: Date of Thrive Assessment Date Thrive assessed 12/09/24 05/02/25 10:58 Currently or been in a relationship where the following occur: No concerns reported Const General: well developed; No acute distress Nutritional Appearance: well nourished Orientation/consciousness: patient oriented x3 HENWV Head: Yes normocephalic and Yes atraumatic Eyes General: appearance normal, both eyes and all related structures Pupils: Equal, round and reactive pupils present EOM: EOMs intact bilaterally Resp Effort & Inspection: normal respiratory effort Neuro General: patient oriented x3 and gait normal Cranial nerves: Yes Equal, round and reactive pupils present Psych Affect: normal affect Coding Level of Care Code Est Pt Level 4 (33144) Diagnoses Left shoulder pain M25.512 Toe pain M79.676 Cervicalgia M54.2 Witnessed apneic spells R06.81 Hypersomnia G47.10 Assessment & Plan Assessment & Plan (1) Left shoulder pain: Code(s): M25.512 - Pain in left shoulder Category: Medical (2) Toe pain: Code(s): M79.676 - Pain in unspecified toe(s) Category: Medical (3) Cervicalgia: Code(s): M54.2 - Cervicalgia Category: Medical (4) Witnessed apneic spells: Code(s): R06.81 - Apnea, not elsewhere classified Category: Medical (5) Hypersomnia: Code(s): G47.10 - Hypersomnia, unspecified Category: Medical Plan Patient with a history of significant disc deformities in cervical spine as well as neck and shoulder pain presents with flare-up of left neck and shoulder pain after lifting a heavy object. Circulation and sensation are intact. Does note some numbness but no weakness. Has some decreased range of motion past 90 degrees secondary to discomfort pain Concerned that he may have some cervical radiculitis as well as likely trapezius and possibly supraspinatus strain Start physical therapy Recommend NSAIDs and ice/heat If worsening or not improving would consider advanced imaging and referral to ortho. Patient has seen Dr. Weber in the past. Left great toe pain secondary to dropping heavy item on his toe. He did go to the emergency department and had no fracture on x-rays. Has lost nail from great toe. Can use NSAIDs and elevation Orders: Orders TSH reflex Free T4 Today Z00.00 - Encounter for general adult medical examination without abnormal findings PT Evaluation and Treatment Today M25.512 - Pain in left shoulder, M54.2 - Cervicalgia Comprehensive [place]. Panel Fast Today Z00.00 - Encounter for general adult medical examination without abnormal findings Lipid Panel Today Z00.00 - Encounter for general adult medical examination without abnormal findings Microalbumin, Random (w Creat) Today I10 - Essential (primary) hypertension UA CC w/rflx Micro + Cult Today Z00.00 - Encounter for general adult medical examination without abnormal findings Referrals Sleep Medicine Referral R06.81 - Apnea, not elsewhere classified Medications: New naproxen 500 mg PO BID PRN 60 tabs 0RF pain 30 days
[2025-05-02 11:01] VITALS: BP 114/80; PULSE 79; RESP 12; TEMP 36.3; O2SAT 98; BMI 24.5
== END 2025-05-02 11:40 | disposition home or self-care (01) ==
LOC: HO.HMCFM 10:20
PROVIDERS: PCP Family Medicine; Visit Provider Family Medicine
DX: M25.512 Pain in left shoulder (principal); M79.676 Pain in unspecified toe(s); M54.2 Cervicalgia; R06.81 Apnea, not elsewhere classified; G47.10 Hypersomnia, unspecified

== ENCOUNTER → 2025-05-02 10:19 | Outpatient (BNVA) | payer OTHER, SELFPAY | PROVIDERS: PCP Family Medicine; Visit Provider Family Medicine | DX: M54.12 Radiculopathy, cervical region (principal); M25.512 Pain in left shoulder; M79.676 Pain in unspecified toe(s); I10 Essential (primary) hypertension; R06.81 Apnea, not elsewhere classified; G47.10 Hypersomnia, unspecified; S46.912A Strain of unspecified muscle, fascia and tendon at shoulder and upper arm level, left arm, initial encounter; X58.XXXA Exposure to other specified factors, initial encounter; Y93.9 Activity, unspecified; Y92.9 Unspecified place or not applicable; Y99.9 Unspecified external cause status | CPT/HCPCS: 99212 ==

== ENCOUNTER 2025-07-01 08:15 | Outpatient (REF) | payer OTHER, SELFPAY ==
[2025-07-01 11:35] LABS: Alanine Aminotransferase 37 U/L (0-40); Albumin Level 4.9 g/dL (3.5-5.0); Alkaline Phosphatase 90 U/L (39-117); Anion Gap 10 (12-20); Aspartate Amino Transferase 32 U/L (5-37); Blood Urea Nitrogen 14 mg/dL (9-16); Calcium 9.4 mg/dL (8.4-10.2); Carbon Dioxide 31 mmol/L (22-29); Chloride 105 mmol/L (96-108); Cholesterol 171 mg/dL (<200); Estimated Glomerular Filt Rate > 60; HDL Cholesterol 50 mg/dL (>40); Potassium 3.9 mmol/L (3.3-5.1); Sodium 142 mmol/L (135-145); Total Protein 7.4 g/dL (6.5-8.0); Triglycerides 126 mg/dL (<150)
== END 2025-07-01 08:16 ==
LOC: HO.WFDLDS 08:15
PROVIDERS: Visit Provider Family Medicine
DX: Z00.00 Encounter for general adult medical examination without abnormal findings (principal); Z13.29 Encounter for screening for other suspected endocrine disorder; Z13.6 Encounter for screening for cardiovascular disorders
CPT/HCPCS: 36415; 80053; 80061; 84443

== ENCOUNTER 2025-07-03 16:13 | Outpatient (AMB) | payer OTHER, SELFPAY ==
--- NOTE | 2025-07-03 15:39 | A.OFFPC_ITS ---
Intake Visit Reasons: f/u labs via telemedicine Allergies No Known Allergies Allergy (Verified 07/03/25 15:41) Medication List - Last Reconciled 07/03/25 by Cabrera Dove MD naproxen 500 mg PO BID PRN 30 days Tobacco use date assessed: 05/02/25 Dental Screening Dental Screen Date: 05/02/25 HPI f/u labs via telemedicine HPI Details 30 y/o male presents to f/u labs via tel emed. Labs drawn 07/01/25. Reviewed labs with pt. Triglycerides 126. TC 171. LDL 96. HDL 50. TSH 1.13. PFSH Family History Maternal Grandmother Breast cancer Father Joint pain Social History (Updated 07/03/25 @ 15:41 by Davey Gotti CMA) Housing: House Alcohol intake: current Patient Tobacco Use Status: Never used Tobacco e-Cigarette/Vaping Use: Never Used Second Hand Smoke Exposure: No service: Yes Current occupational status: employed Current occupation: [employer]. Current occupational exposures/hazards: No Cognitive needs: No Hearing needs: No Vision needs: No Questionnaire Thrive Questionnaire Date Thrive assessed: 12/09/24 I am a: Patient What is your living situation today?: I have a steady place to live Within the past 12 months, did the food you bought not last and you didn't have the money to get more?: Never true Within the past 12 months, did you worry whether your food would run out before you got money to buy more?: Never true Do you have trouble paying for medicines?: No Do you have trouble getting transportation to medical appointments?: No Do you have trouble paying your heating and electricity bill?: No Do you have trouble taking care of your child, family member or friend?: No Do you have trouble with day-to-day activities such as bathing, preparing meals, shopping, managing finances, etc.?: No Are you currently unemployed and looking for a job?: No Are you interested in more education?: No Please select the resources that you would like help with: None Currently or been in a relationship where the following occur: No concerns reported THRIVE Score: 0 AR-7 AMB Questionnaire AR-7 Date AR - 7 assessed: 12/09/24 Source: Developed by Drs. Torrey Lopez, Ankita Corona, Ronny Goldman and colleagues, with an educational neetu from [employer]. Review of Systems Const Denies chills, Denies fatigue, Denies fever(s), Denies headache(s) and Denies weakness ENT Denies dizziness and Denies headache(s) Card Denies dyspnea Resp Denies cough, Denies dyspnea, Denies wheezing and Denies other (shortness of breath) Musc Denies numbness and Denies tingling Neuro Denies dizziness, Denies headache(s), Denies numbness, Denies tingling and Denies weakness Psych Denies anxiety and Denies depression Endo Denies fatigue Aller/Immun Denies wheezing Physical exam (Primary Care) Tobacco/Smoking Status: Tobacco use Status Tobacco use date assessed 05/02/25 07/03/25 15:44 Patient Tobacco Use Status Never used Tobacco 07/03/25 15:44 e-Cigarette/Vaping Use Never Used 07/03/25 15:44 Thrive Assessment: Date of Thrive Assessment Date Thrive assessed 12/09/24 07/03/25 15:44 Currently or been in a relationship where the following occur: No concerns reported Telehealth Telehealth Telehealth Platform: Telephone Location of provider rendering services: practice address Location of patient: address on file Patient Identification confirmed using: Name, : Yes Telehealth method: voice only Patient verbally consented to treatment: Yes Patient verbally consented to billing insurance company: Yes Patient informed of any privacy concerns related to visit: Yes Minutes spent on Phone/Video with Pt.: 5 Coding Level of Care Code Tele Est Pt Level 2 (62365) Diagnoses Cervicalgia M54.2 Left shoulder pain M25.512 Witnessed apneic spells R06.81 Assessment & Plan Assessment & Plan (1) Cervicalgia: Code(s): M54.2 - Cervicalgia Category: Medical Plan: Patient has ongoing neck and left shoulder pain Had referred him for physical therapy. He says that he was contacted but has not been able to schedule appointments yet due to his schedule. Naproxen is helping though symptoms do not completely resolve Encouraged him to try physical therapy when he is able to schedule it. If still not improving, would consider advanced imaging again or a referral to Ortho (2) Left shoulder pain: Code(s): M25.512 - Pain in left shoulder Category: Medical Plan: As above (3) Witnessed apneic spells: Code(s): R06.81 - Apnea, not elsewhere classified Category: Medical Plan: Patient says that he let his referral to sleep Medicine labs. New referral sent Orders: Referrals Sleep Medicine Referral G47.10 - Hypersomnia, unspecified, R06.81 - Apnea, not elsewhere classified
== END 2025-07-03 17:05 | disposition home or self-care (01) ==
LOC: HO.HMCFM 16:14
PROVIDERS: PCP Family Medicine; Visit Provider Family Medicine
DX: M54.2 Cervicalgia (principal); M25.512 Pain in left shoulder; R06.81 Apnea, not elsewhere classified